=== PATIENT | male | born 1995 | race Two or more races ===

== ENCOUNTER 2018-06-26 22:04 | Emergency (ER) | payer MEDICAID ==
[~2018-06-26] VITALS: Ht 177.8 cm; Wt 68.0 kg
[2018-06-26 22:06] VITALS: BP 115/75
--- NOTE | 2018-06-26 22:20 | Emergency Room Report ---
History of Present Illness General Chief Complaint: Behavioral Complaint Source: Patient Present Illness HPI This a 22-year-old male who has a history of drug abuse. He presents with chief complaint of unable to sleep and hungry. He said he took drugs yesterday and since then couldn't sleep. Also said he has needed anything today. Said he has no money because he sold his . For drugs. Denies any suicidal thought homicidal thought. Denies any other complaint. Also with generalized body pain nothing made it better. Nothing made it worse. Allergies: Coded Allergies: ACETAMINOPHEN (Verified Allergy, Unknown, 06/26/18) Patient History Past Medical History: see triage record, old chart reviewed Past Surgical History: other Pertinent Family History: none Social History: Reports: drug use Immunizations: other Reviewed Nursing Documentation: PMH: Agreed; PSxH: Agreed Nursing Documentation-PMH Past Medical History: No Stated History Review of Systems Eye: Denies: eye pain, blurred vision ENT: Denies: ear pain, nose congestion, throat swelling Respiratory: Denies: cough, shortness of breath Cardiovascular: Denies: chest pain, palpitations Gastrointestinal: Denies: abdominal pain, diarrhea, nausea, vomiting Musculoskeletal: Denies: back pain, joint pain Skin: Denies: rash Neurological: Denies: headache, numbness Endocrine: Denies: increased thirst, increased urine Hematologic/Lymphatic: Denies: easy bruising All Other Systems: negative except mentioned in HPI Physical Exam Vital Signs Date Time Temp Pulse Resp B/P (MAP) Pulse Ox O2 Delivery O2 Flow Rate FiO2 06/26/18 21:56 98.4 103 12 133/85 99 Room Air 98.4 vitals normal Sp02 EP Interpretation: reviewed, normal General Appearance: well appearing, no apparent distress, alert Head: normocephalic, atraumatic Eyes: bilateral eye PERRL, bilateral eye EOMI ENT: hearing grossly normal, normal pharynx Neck: full range of motion, supple, no meningismus Respiratory: chest non-tender, lungs clear, normal breath sounds Cardiovascular #1: regular rate, rhythm, no murmur Gastrointestinal: normal bowel sounds, non tender, no mass, no organomegaly, no bruit, non-distended Musculoskeletal: back normal, gait/station normal, normal range of motion Psychiatric: mood/affect normal Skin: warm/dry Medical Decision Making Diagnostic Impression: Primary Impression: Substance abuse ER Course Patient with substance abuse. No suicidal thought homicidal thought. No criteria for 5150. Patient ate without any problem here. Will give follow-up to mental health and drug rehabilitation centers. This patient is a chronic risk of self injury due to poor impulse control, limited coping skills, and judgment intermittently impaired by intoxication. I believe that the available clinical evidence to suggest that these characteristics derived primarily from personality disorder and are likely very stable over time. Hospitalization would likely attenuate risk of self-harm only during halfway period, without lasting risk reduction. Serious self-harm , while possible, would likely be inadvertent, and because of impulsivity, and foreseeable. For these reasons, I do not believe hospitalization would provide meaningful reduction in risk of self-harm. Last Vital Signs Date Time Temp Pulse Resp B/P (MAP) Pulse Ox O2 Delivery O2 Flow Rate FiO2 06/26/18 22:06 97.8 70 14 115/75 99 Room Air 97.8 Status: improved Disposition: HOME, SELF-CARE Condition: Stable Patient Instructions: Self-Destructive Behavior Additional Instructions: Stop using drugs. Follow-up with rehabilitation within a week. Return if worse. Follow-up your doctor in 7 days. Hunter Leblanc MD Jun 26, 2018 22:20
[2018-06-26 23:28] VITALS: BP 115/75
== END 2018-06-26 22:30 | disposition home or self-care (01) ==
LOC: EDBD 22:04 → EMR 22:17
DX: F19.10 Other psychoactive substance abuse, uncomplicated (principal); G47.00 Insomnia, unspecified; Z88.6 Allergy status to analgesic agent
CPT/HCPCS: 99283

== ENCOUNTER 2018-06-28 22:15 | Emergency (ER) | payer MEDICAID ==
[~2018-06-28] VITALS: Ht 180.3 cm; Wt 79.4 kg
[2018-06-28 22:28] VITALS: BP 111/71
--- NOTE | 2018-06-28 22:56 | Emergency Room Report ---
History of Present Illness General Chief Complaint: General Complaint Source: Patient Present Illness HPI This patient is here for similar to two days ago. He wants a place to stay. There are no new medical issues. Hungry insomnia. Denies any suicidal thought homicidal thought. Denies any other complaint. Allergies: Coded Allergies: ACETAMINOPHEN (Verified Allergy, Unknown, 06/26/18) Nursing Documentation-PMH Hx Cardiac Problems: No - Cellulitis Review of Systems Constitutional: Reports: no symptoms, see HPI Eye: Reports: no symptoms ENT: Reports: no symptoms Respiratory: Reports: no symptoms Cardiovascular: Reports: no symptoms Gastrointestinal: Reports: no symptoms Genitourinary: Reports: no symptoms Musculoskeletal: Reports: no symptoms Skin: Reports: no symptoms Psychiatric: Reports: see HPI, prior hx, emotional problems Neurological: Reports: no symptoms Endocrine: Reports: no symptoms Hematologic/Lymphatic: Reports: no symptoms Allergic: Reports: no symptoms All Other Systems: negative except mentioned in HPI Physical Exam Vital Signs Date Time Temp Pulse Resp B/P (MAP) Pulse Ox O2 Delivery O2 Flow Rate FiO2 06/28/18 22:23 98.1 97 15 111/71 99 Room Air 98.1 Sp02 EP Interpretation: reviewed, normal General Appearance: normal inspection, well appearing, no apparent distress, alert, GCS 15, non-toxic, thin, other - poor hygiene Head: normocephalic, atraumatic Eyes: bilateral eye normal inspection, bilateral eye PERRL, bilateral eye EOMI ENT: normal ENT inspection, hearing grossly normal, normal pharynx, no angioedema, normal voice, moist mucus membranes Neck: normal inspection, full range of motion, supple, no meningismus, no bony tend Respiratory: normal inspection, lungs clear, normal breath sounds, no rhonchi, no respiratory distress, no retraction, no accessory muscle use, no wheezing Cardiovascular #1: normal inspection, regular rate, rhythm, no edema Gastrointestinal: normal inspection, normal bowel sounds, non tender, soft, no mass, non-distended Musculoskeletal: gait/station normal, normal range of motion Neurologic: normal inspection, alert, oriented x3, responsive, motor strength/ tone normal Psychiatric: normal inspection, judgement/insight normal, memory normal Suicide Risk Assessment: Suicidal Ideation: No Had intent to initiate attempt: No Pt's plan for suicide attempt: No Has means to complete attempt: No Skin: normal inspection, normal color, no rash, warm/dry Medical Decision Making ER Course Patient with history substance abuse, poor life choices. Not suicidal. No criteria for 5150. Patient ate without any problem here. Will give follow-up to mental health and drug rehabilitation centers. This patient is a chronic risk of self injury due to poor impulse control, limited coping skills, and judgment intermittently impaired by intoxication. I believe that the available clinical evidence to suggest that these characteristics derived primarily from personality disorder and are likely very stable over time. Hospitalization would likely attenuate risk of self-harm only during residential period, without lasting risk reduction. Serious self-harm , while possible, would likely be inadvertent, and because of impulsivity, and foreseeable. For these reasons, I do not believe hospitalization would provide meaningful reduction in risk of self-harm. Last Vital Signs Date Time Temp Pulse Resp B/P (MAP) Pulse Ox O2 Delivery O2 Flow Rate FiO2 06/28/18 22:28 98.1 97 15 111/71 99 Room Air 98.1 Disposition: HOME, SELF-CARE Condition: Stable Patient Instructions: Substance Use Disorder Alonzo Xie M.D. Jun 28, 2018 22:56
[2018-06-28 23:11] VITALS: BP 111/71
== END 2018-06-28 23:11 | disposition home or self-care (01) ==
LOC: EMR 22:50
DX: G47.00 Insomnia, unspecified (principal); F51.9 Sleep disorder not due to a substance or known physiological condition, unspecified
CPT/HCPCS: 99282

== ENCOUNTER 2018-12-12 21:47 | Emergency (ER) | payer SELFPAY, MEDICAID ==
[~2018-12-12] VITALS: Ht 180.3 cm; Wt 68.0 kg
--- NOTE | 2018-12-12 21:50 | NUR ---
ED Nurse Note: Patient brought in by [facility] with a medical clearance, patient does have a skin tear located on the right thumb rates a 6/10 pain. patient states he got the skin tear by having a door slammed on his right thumb. patient is alert and oriented x4, ambulatory with a steady gait ,vSS
[2018-12-12] MEDS ORDERED: NKM (21:51)
[2018-12-12 22:00] VITALS: BP 118/70
[2018-12-12] MEDS ORDERED: Bacitracin Oint UD TOPIC ONE (22:00)
--- NOTE | 2018-12-12 22:06 | Diagnostic Imaging Report ---
EXAM: XR Right Finger(s), 2 or More Views CLINICAL HISTORY: TRAUMA TECHNIQUE: Frontal, lateral and oblique views of finger(s) of the right hand. COMPARISON: No relevant prior studies available. FINDINGS: Bones/joints: Unremarkable. No acute fracture. No dislocation. Soft tissues: Unremarkable. No radiopaque foreign body. IMPRESSION: Normal x-rays of the visualized right fingers.
[2018-12-12] MEDS ORDERED: IBUPROFEN600 MG ORAL (22:17)
--- NOTE | 2018-12-12 22:19 | Emergency Room Report ---
History of Present Illness General Chief Complaint: Medical Clearance Source: Patient Present Illness HPI Is a 23-year-old male who is right-hand dominant. He presents with chief complaint of injury to his right thumb. This brought in by police for medical clearance. He said his thumb got caught in the door. This occurred just prior to arrival. Denies any other injury. Pain is 7 out of 10. Worse with movement. Allergies: Coded Allergies: ACETAMINOPHEN (Verified Allergy, Unknown, 06/26/18) Patient History Past Medical History: see triage record, old chart reviewed, HIV Past Surgical History: none Pertinent Family History: none Social History: Denies: smoking Immunizations: other Reviewed Nursing Documentation: PMH: Agreed; PSxH: Agreed Nursing Documentation-PMH Past Medical History: No History, Except For Hx Cardiac Problems: No - Cellulitis, HIV positive Review of Systems Eye: Denies: eye pain, blurred vision ENT: Denies: ear pain, nose congestion, throat swelling Respiratory: Denies: cough, shortness of breath Cardiovascular: Denies: chest pain, palpitations Gastrointestinal: Denies: abdominal pain, diarrhea, nausea, vomiting Musculoskeletal: Reports: joint pain; Denies: back pain Skin: Denies: rash Neurological: Denies: headache, numbness Endocrine: Denies: increased thirst, increased urine Hematologic/Lymphatic: Denies: easy bruising All Other Systems: negative except mentioned in HPI Physical Exam Vital Signs Date Time Temp Pulse Resp B/P (MAP) Pulse Ox O2 Delivery O2 Flow Rate FiO2 12/12/18 21:49 98.6 95 18 118/70 98 Room Air vitals normal Sp02 EP Interpretation: reviewed, normal General Appearance: well appearing, no apparent distress, alert Head: normocephalic, atraumatic Eyes: bilateral eye PERRL, bilateral eye EOMI ENT: hearing grossly normal, normal pharynx Neck: full range of motion, supple, no meningismus Respiratory: chest non-tender, lungs clear, normal breath sounds Cardiovascular #1: regular rate, rhythm, no murmur Gastrointestinal: normal bowel sounds, non tender, no mass, no organomegaly, no bruit, non-distended Musculoskeletal: back normal, gait/station normal, normal range of motion, other - Right thumb: Tenderness over the PIP joint. He has a small skin abrasion over that area. Psychiatric: mood/affect normal Skin: warm/dry Medical Decision Making Diagnostic Impression: Primary Impression: Contusion of thumb, right Qualified Codes: S60.011A - Contusion of right thumb without damage to nail, initial encounter Additional Impressions: Skin abrasion Examination, medicolegal reason ER Course Patient with soft tissue injury. No fracture dislocation. Nothing to be sutured. Other X-Ray Diagnostic Results Other X-Ray Diagnostic Results : X-Ray ordered: Right thumb x-rays # of Views/Limited Vs Complete: 3 View Indication: Pain EP Interpretation: Yes Interpretation: no dislocation, no soft tissue swelling, no fractures Impression: No acute disease Electronically Signed by: Hunter Leblanc MD Last Vital Signs Date Time Temp Pulse Resp B/P (MAP) Pulse Ox O2 Delivery O2 Flow Rate FiO2 12/12/18 22:00 98.6 95 18 118/70 98 Room Air Status: improved Disposition: D/C TO [facility] IN [facility] Condition: Stable Scripts Ibuprofen* (MOTRIN*) 600 Mg Tablet 600 MG ORAL THREE TIMES A DAY, #30 TAB 0 Refills Prov: Hunter Leblanc MD 12/12/18 Additional Instructions: Keep wound clean. Follow-up with your doctor in 7 days as needed. Return if worse. Hunter Leblanc MD Dec 12, 2018 22:19
[2018-12-12 22:31] VITALS: BP 122/72
--- NOTE | 2018-12-12 22:32 | NUR ---
ER DISCHARGE NOTE: Patient is cleared to be discharged per ERMD, pt is aox4, on room air, with stable vital signs. pt was given dc and prescription instructions, pt was able to verbalize understanding, pt id band removed without complications. pt is able to ambulate with steady gait. pt took all belongings. Patient was given the OK to book by Dr. Leblanc, papers given to [employer]
== END 2018-12-12 22:31 ==
LOC: EMR 22:00
DX: S60.011A Contusion of right thumb without damage to nail, initial encounter (principal); S60.311A Abrasion of right thumb, initial encounter; W23.0XXA Caught, crushed, jammed, or pinched between moving objects, initial encounter; Y92.9 Unspecified place or not applicable; Z04.89 Encounter for examination and observation for other specified reasons; Z88.6 Allergy status to analgesic agent
CPT/HCPCS: 99283